=== PATIENT | female | born 1990 | race Caucasian/White ===

== ENCOUNTER 2016-11-06 10:30 | Day surgery (SDC) | payer MEDICARE ==
[~2016-11-06] VITALS: Ht 160 cm; Wt 65.5 kg
[2016-11-06 11:15] LABS: BASOPHILS 0.3 % (0.0-2.0); EOSINOPHILS 2.3 % (0-7); HEMATOCRIT 41.8 % (36.0-48.0); HEMOGLOBIN 14.2 g/dL (12-16); IMMATURE GRANULOCYTES 0.3 % (0-5); LYMPHOCYTES 30.9 % (15-50); MCH 30.5 pg (26.0-34.0); MCV 89.7 fL (80.0-100.0); MEAN PLATELET VOLUME 9.9 fL (7.4-10.4); MONOCYTES 9.1 % (2-11); NEUTROPHILS 57.1 % (40-80); PLATELET COUNT 199 10x3/uL (130-400); RBC 4.66 10x6/uL (4.00-5.40); RDW 12.7 % (11.5-14.5); WBC 3.9 10x3/uL (4.8-10.8)
[2016-11-06 11:27] LABS: CALC OSMOLALITY 277 mosm/kg (275-300); CALCIUM 9.1 mg/dL (8.5-10.1); CARBON DIOXIDE 28.5 mmol/L (21.0-32.0); CHLORIDE - SERUM 103 mmol/L (98-107); CREATININE - SERUM 0.8 mg/dL (0.6-1.3); GLUCOSE 83 mg/dL (74-106); POTASSIUM - SERUM 3.6 mmol/L (3.5-5.1); SODIUM 139 mmol/L (136-145); UREA NITROGEN 15 mg/dL (7-18); eGFR NON AFRICAN AMERICAN > 90 mL/min (90-120)
[2016-11-06] MEDS ORDERED: FLUTICASONE PRO16 GM NASAL (11:29)
[2016-11-06 11:36] VITALS: BP 120/67; Ht 160 cm; Wt 65.5 kg
--- NOTE | 2016-11-06 11:44 | NUR ---
PT RECIEVED TO ROOM 2222 VIA DIRECT ADMISSION FROM DR SCHWARTZ OFFICE. SALINE LOCK STARTED TO LEFT FORARM 20 GA X 1 STICK TOLERATED WELL. FATHER AT BEDSIDE ANSWERS ALL QUESTIONS APPROPRIATELY ADMISSION COMPLETE AT THIS TIME. ORINETED TO ROOM AND STAFF WELL CALL LIGHT SYSTEM. WILL MONITOR AND AWAIT CONSULTING PHYSICIAN ORDERS.
[2016-11-06 12:26] VITALS: BP 107/64
[2016-11-06 13:54] LABS: HCG URINE NEGATIVE (NEGATIVE)
[2016-11-06 13:58] LABS: APPEARANCE CLEAR (CLEAR); BILIRUBIN NEGATIVE (NEGATIVE); COLOR YELLOW (YELLOW); GLUCOSE NEGATIVE (NEGATIVE); KETONE LARGE mg/dL (NEGATIVE); LEUKOCYTE ESTERASE NEGATIVE (NEGATIVE); NITRITE NEGATIVE (NEGATIVE); PROTEIN TRACE mg/dL (NEGATIVE); UROBILINOGEN NORMAL (NORMAL)
[2016-11-06 14:00] LABS: BACTERIA MODERATE /hpf (NONE SEEN); EPITHELIAL CELLS 0-5 /hpf (0-5); MUCUS >1+ /lpf (NONE SEEN); RED CELLS - URINE 0-5 /hpf (0-5); WHITE CELLS - URINE 0-5 /hpf (0-5)
--- NOTE | 2016-11-06 15:15 | HP ---
PATIENT: KEELY AGUILAR MEDICAL RECORD: [id number] ACCOUNT: [id number] LOCATION:D.MS [id number] : 91 ADMISSION DATE: 11/06/16 HISTORY AND PHYSICAL EXAMINATION REASON FOR ADMISSION: Right lower quadrant abdominal pain and nausea. HISTORY OF PRESENT ILLNESS: The patient is a 26-year-old female who noted 4 days ago onset of some vague right lower quadrant pain and nausea. She went to [facility] ER and they did lab work, and sent her home with diagnosis of gastritis. She seemed to have pain which is more intensified despite no fever. She had had some constipation as well. She saw me 2 days ago and exam was consistent with appendicitis with McBurney's point tenderness; however, her white count was 7000. Urinalysis and UPT were negative. A CT scan of the abdomen was nondiagnostic. She had a bowel loop overlying the appendix and Dr. Tucker could not discerned acute appendicitis. She was observed overnight, came back in yesterday, white count was 6500, still having pain and some peritoneal signs. Her PET scan again was nondiagnostic. For that reason, she was held n.p.o. I spoke to Dr. Hernandez this morning. He examined the patient in the office and he thinks she has an atypical appendicitis. She is now being admitted for surgical consultation and possible laparoscopic appendectomy. PAST MEDICAL HISTORY: She had a history of constipation. PAST SURGICAL HISTORY: Negative. MEDICATIONS: None. ALLERGIES: None mentioned. FAMILY HISTORY: Mother in good health. Father in good health, but has history of hyperlipidemia. REVIEW OF SYSTEMS: CONSTITUTIONAL: No fever or fatigue. HEENT: No recent visual change, sinus congestion. RESPIRATORY: No severe cough. CARDIAC: No exertional chest pain, claudication or edema. GASTROINTESTINAL: She has had nausea with occasional vomiting. She has had mild constipation and continued right lower quadrant abdominal pain. GYNECOLOGICAL: Menstrual period 2 weeks ago. Denies history of metrorrhagia or Mittelschmerz pain. She is 0. GENITOURINARY: No dysuria, nocturia or hematuria. ENDOCRINE: Denies polyuria, polydipsia, heat or cold intolerance. NEUROLOGIC: No history of TIA, vascular headaches, paresthesias or seizures. PHYSICAL EXAMINATION: GENERAL: Weight is 146.4 pounds. VITAL SIGNS: Blood pressure 110/60, heart rate 70, temperature is 98. GENERAL: The patient is not acutely ill, but uncomfortable. HEENT: Eyes are clear. Sclerae nonicteric. Oropharynx unremarkable. NECK: Supple. CHEST: Clear. HEART: Regular without murmur. ABDOMEN: Soft, but tender over at McBurney's point with some generalized HISTORY AND PHYSICAL [id number] AGUILAR,KEELY REYES peritoneal signs. Bowel sounds are hypoactive. EXTREMITIES: No CCE. NEUROLOGICAL: Intact. LABORATORY DATA: Her laboratory work on 11/05/2016: White count 7500, H&H is 14.5 and 43.3 with a normal differential. BMP was normal. Urinalysis showed trace mucus, 1-2 red cells. UPT was negative. CT scan of the abdomen times 2, the last yesterday, revealed not identified appendix, question of inflammatory change posterior to the base of the cecum, which could be nonopacified bowel versus appendix there. The patient also had a collapsed right ovarian follicle with some free fluid noted in the pelvis. ASSESSMENT: Probable acute appendicitis, abdominal pain, ovarian cyst. PLAN: The patient is admitted for surgical consult, n.p.o., IV fluids, and IV antibiotics. TRANSINT:[id number] Voice Confirmation ID: [id number] DOCUMENT ID: [id number] JAYJAY SCHWARTZ MD at 1515 CC: [id number] DICTATION DATE: 11/06/16 1304 GLAZE SUPERVISOR: 11/06/16 1427 [place] [address]
[2016-11-06 16:06] VITALS: BP 112/70
--- NOTE | 2016-11-06 16:12 | NUR ---
RECIEVED TO ROOM FROM RECOVERY ROOM AWAKE AND ALERT LAP SITES X 4 TO ABDOMEN. COMPLAINS OF DISCOMFORT. WILL TREAT PER ORDER NEEDED
[2016-11-06] MEDS ORDERED: HYDROCODON-ACE1 EAC7 PO (19:16)
--- NOTE | 2016-11-06 20:02 | NUR ---
PATIENT AND FAMILY RECIEVED DISCHARGE INTRUCTIONS@1940 WRITTENLY AND VERBALLY, ALL QUESTIONS WERE ANSWERED. WRITEN SCRIPT FOR YULY WAS GIVEN AND EXPLAINDED THAT IT NEEDS TO BE GIVEN TO THE PHARMACIST TO GET PAIN MEDICATION. 20G PIV D/C WITH CATHETER INTACT AND NO SIGNS OF INFILTRATION. SHE WAS TAKEN DOWN VIA WHEELCHAIR TO THE FRONT ENTERANCE WITH NURSE AND FAMILY MEMBER TO BE DRIVEN HOME.
--- NOTE | 2016-12-11 09:40 | CN ---
PATIENT NAME:KEELY AGUILAR MEDICAL RECORD: [id number] : 89 LOCATION:D.OPS ADMIT DATE: ACCOUNT: [id number] CONSULTING PHYSICIAN: MARKUS FLOREZ MD REFERRING PHYSICIAN: JAYJAY SCHWARTZ MD DATE OF CONSULTATION: 11/06/2016 CHIEF COMPLAINT: Pain. HISTORY OF PRESENT ILLNESS: The patient has had abdominal pain since Wednesday. She has right lower quadrant pain. The patient has tenderness and guarding in the right lower quadrant and that is right over McBurney's point. She has been to the Emergency Room. She has undergone 2 CT scans. I have personally reviewed the CT images. I have reviewed them with the radiologist as well. They are consistent with appendicitis. Her history is consistent with appendicitis as is her physical examination. The patient had been previously diagnosed with reflux, I am told. I have given her a dose of intravenous antibiotics. My plan is for a laparoscopic appendectomy today. The risks, possible complications and alternatives to procedure were explained to the patient. She elects to proceed. HOME MEDICATIONS: Fluticasone propionate nasal spray. ALLERGIES: No known drug allergies. SOCIAL HISTORY: Noncontributory. REVIEW OF SYSTEMS: Positive for nausea, positive for vomiting. No fever. Positive for anorexia. Positive for abdominal pain. It hurts when she moves. It hurts when you tap her heel. It hurts when you percuss over the right lower quadrant. Review of systems is negative other than as is described above. PHYSICAL EXAMINATION: GENERAL: The patient does appear acutely ill. Does not appear chronically ill. The entire physical examination was performed with the presence of a female nurse. VITAL SIGNS: Reviewed. HEAD: External ears appear normal. EYES: Extraocular movements are intact. NECK: Trachea is midline. CHEST: No intercostal retractions. PULMONARY: Nonlabored. No stridor. ABDOMEN: As described above. EXTREMITIES: No peripheral cyanosis. INTEGUMENT: No rash. No ulcerations. PSYCHIATRIC: Normal affect. NEUROLOGIC: Nonfocal. No lethargy. The patient answers questions appropriately, moves all extremities well. BACK: No thoracic kyphosis. LYMPHATICS: No lymphangitic streaking of the exposed extremities. IMPRESSION: Acute appendicitis. CONSULT REPORT [id number] KEELY AGUILAR PLAN: Laparoscopic appendectomy, possible open procedure. I have told the patient and her family that should I identify a normal appendix, I would still remove it in case she would have a recurrence or persistence of symptoms. We would want to remove the appendix as a possible source of confusion in the future if her pain recurs or persists. TRANSINT:[id number] Voice Confirmation ID: [id number] DOCUMENT ID: [id number] MARKUS FLOREZ MD at 0940 CC: JAYJAY SCHWARTZ MD [id number] DICTATION DATE: 11/06/16 152 FILES SUPERVISOR: 11/06/162105 [facility] 11/06/16 [facility] [address] [place] [address]
--- NOTE | 2016-12-11 09:40 | OP ---
PATIENT NAME: KEELY AGUILAR MEDICAL RECORD: [id number] :89 [facility] AD[facility] DATE: SURGEON: MARKUS FLOREZ MD DATE OF OPERATION: 11/06/2016 PREOPERATIVE DIAGNOSIS: Acute appendicitis. POSTOPERATIVE DIAGNOSIS: Acute nonruptured appendicitis. PROCEDURE: Laparoscopic appendectomy. SURGEON: Markus Florez MD. HAND TACKER: None. BLOOD LOSS: Minimal. ANESTHESIA: General. COMPLICATIONS: None. The risks, possible complications and alternatives to procedure were explained to the patient. She elects to proceed. OPERATIVE COURSE: The patient was conveyed to the operating room electively on 11/06/2016. General anesthesia was induced by the anesthesia staff. The abdomen was sterilely prepped and draped. A small skin renetta was accomplished in the left upper quadrant. A Veress needle was inserted through the skin renetta into the peritoneal cavity. CO2 insufflation was begun. Once a sufficient pneumoperitoneum had been achieved, a 5-mm trocar was inserted through a transverse incision in the left lower quadrant. Under direct internal vision utilizing a television camera, a 5-mm trocar was inserted through an incision in the right groin. A 12-mm trocar was inserted through an incision in the umbilicus. During insertion of the Veress needle and all trocars, there appeared to have been no injury to the bowels, any intraperitoneal or retroperitoneal structures. Abdominal survey was undertaken. Both tubes and ovaries appeared normal. The uterus was normal. There was a small amount of clear fluid in the pelvis. I noted no purulence. No exudate. A window was created in the mesoappendix. I then took down the mesoappendix utilizing the EnSeal device. I stapled across the tip of the cecum with an Endo-KELVIN type stapler with a blue load. The appendix was placed within a bag retrieval device and was withdrawn through the umbilical fascia defect. The 12-mm trocar was placed and the abdomen reinsufflated. I irrigated and aspirated in the right lower quadrant. There was no bleeding even at low pressure of 8. The 12-mm trocar was removed. The fascia at the umbilicus was closed with the Collin-Brennon suture closure device and 0 Vicryl sutures. All the trocars were removed and the abdomen desufflated. The 5-mm trocar sites were closed with interrupted intracuticular 4-0 Vicryl. The skin at the umbilicus was closed with interrupted 4-0 Vicryl Rapide sutures. Benzoin and Steri-Strips were applied. OPERATIVE REPORT [id number] KEELY AGUILAR The patient was then extubated and conveyed to post-anesthesia care unit where she was in stable condition. I discussed her condition with the on-call physician for Dr. Sandhu. I think that she can be dismissed home this evening. I will see her in the office in 2-3 weeks. TRANSINT:[id number] Voice Confirmation ID: [id number] DOCUMENT ID: [id number] MARKUS FLOREZ MD at 0940 CC: [id number] DICTATION DATE: 11/06/16 153 POST ADOPTION COORDINATOR: 11/06/168 [facility] 11/06/16 [id number] [place] [address]
== END 2016-11-06 19:50 | disposition home or self-care (01) ==
LOC: OBSVTIME → D.OPS 10:30 → D.MS 10:30 → EDSTATUS 19:45 → D.MS 19:50 → D.OPS 19:50
PROVIDERS: Family Medicine; Surgery
DX: K35.80 Unspecified acute appendicitis (principal)